=== PATIENT | female | born 1945 | race Caucasian/White ===

== ENCOUNTER 2018-06-08 17:36 | Emergency (ER) | payer MEDICARE, OTHER ==
[2018-06-08] MEDS ORDERED: SODIUM CHLORIDE 0.9% 2,000 ML IV ONE (18:10)
[2018-06-08] MEDS ORDERED: SODIUM CHLORIDE 0.9% 1,000 ML IV ONE (18:25)
--- NOTE | 2018-06-08 18:31 | ED ---
Abdominal Pain HPI - General Chief Complaint: Abdominal Pain Stated Complaint: Left Side Abd Pain Time Seen by Provider: 06/08/18 18:04 Source: patient Mode of arrival: ambulatory Limitations: no limitations - History of Present Illness Initial Comments: Patient is a 72-year-old male presents with chief complaint of left lower quadrant abdominal pain 1 day. The patient cannot identify inciting incident. There are no aggravating or alleviating factors. Timing is been constant. Patient has not had any previous episodes, she denies any history of kidney stones. She denies chest pain, shortness of breath, nausea or vomiting, or diarrhea. - Related Data Previous Rx's Medication Instructions Recorded Ciprofloxacin HCl [Cipro] 500 mg PO Q12HR #14 tablet 06/08/18 Ibuprofen [Motrin] 800 mg PO TID #21 tab 06/08/18 Ondansetron Odt [Zofran Odt] 4 mg PO Q8HR PRN #12 tab 06/08/18 metroNIDAZOLE [Flagyl] 500 mg PO TID #21 tab 06/08/18 Allergies Allergy/AdvReac Type Severity Reaction Status Date / Time amitriptyline [From Elavil] Allergy Unknown Verified 06/08/18 17:53 erythromycin base Allergy Unknown Verified 06/08/18 17:53 Penicillins Allergy Unknown Verified 06/08/18 17:53 phenazopyridine Allergy Unknown Verified 06/08/18 17:53 [From AZO Standard] prochlorperazine Allergy Unknown Verified 06/08/18 17:53 [From Compazine] Sulfa (Sulfonamide Allergy Unknown Verified 06/08/18 17:53 Antibiotics) Review of Systems ROS Statement: Those systems with pertinent positive or pertinent negative responses have been documented in the HPI. ROS Other: All systems not noted in ROS Statement are negative. Gastrointestinal: Reports: abdominal pain Past Medical History Past Medical History: Cancer, Syncope Additional Past Medical History / Comment(s): breast cancer History of Any Multi-Drug Resistant Organisms: None Reported Past Surgical History: Appendectomy, Orthopedic Surgery, Tonsillectomy Additional Past Surgical History / Comment(s): right mastectomy Past Psychological History: No Psychological Hx Reported Smoking Status: Never smoker Past Alcohol Use History: None Reported Past Drug Use History: None Reported General Exam Limitations: no limitations General appearance: alert, in no apparent distress Head exam: Present: atraumatic, normocephalic Eye exam: Present: normal appearance ENT exam: Present: normal exam, mucous membranes moist Neck exam: Present: normal inspection Respiratory exam: Present: normal lung sounds bilaterally. Absent: respiratory distress, wheezes Cardiovascular Exam: Present: regular rate, normal rhythm GI/Abdominal exam: Present: soft. Absent: distended, tenderness Rectal exam: Present: deferred Extremities exam: Present: normal inspection Back exam: Present: normal inspection. Absent: CVA tenderness (R), CVA tenderness (L) Neurological exam: Present: alert, oriented X3 Psychiatric exam: Present: normal affect, normal mood Skin exam: Present: warm, dry, intact Course Vital Signs 06/08/18 06/08/18 17:49 20:41 Temperature 98.7 F Pulse Rate 96 85 Respiratory 20 18 Rate Blood Pressure 162/89 153/72 O2 Sat by Pulse 96 95 Oximetry Medical Decision Making - Medical Decision Making Patient presents with chief complaint of left lower quadrant abdominal pain. On initial evaluation, vitals are stable, patient is no acute distress. Patient is reevaluated patient labs, urinalysis, and computed tomography scan. We'll wait for urine to determine whether without contrast. 10:19 PM Lab evaluation of this patient shows mildly elevated leukocytosis. Labs are otherwise unremarkable. Computed tomography scan of the abdomen and pelvis shows evidence of sigmoid diverticulitis without abscess or rupture. On reevaluation, patient remained stable. She is agreeable to outpatient antibiotics and follow up with primary care. Patient instructed to follow up in 1-2 days, return to the emergency department if symptoms worsen or change. - Lab Data Result diagrams: 06/08/18 19:10 06/08/18 19:10 Lab Results 06/08/18 06/08/18 Range/Units 19:10 19:10 WBC 12.2 H (3.8-10.6) k/uL RBC 4.54 (3.80-5.40) m/uL Hgb 14.6 (11.4-16.0) gm/dL Hct 41.7 (34.0-46.0) % MCV 91.9 (80.0-100.0) fL MCH 32.2 (25.0-35.0) pg MCHC 35.1 (31.0-37.0) g/dL RDW 12.4 (11.5-15.5) % Plt Count 233 (150-450) k/uL Neutrophils % 73 % Lymphocytes % 18 % Monocytes % 6 % Eosinophils % 2 % Basophils % 0 % Neutrophils # 8.9 H (1.3-7.7) k/uL Lymphocytes # 2.2 (1.0-4.8) k/uL Monocytes # 0.7 (0-1.0) k/uL Eosinophils # 0.2 (0-0.7) k/uL Basophils # 0.1 (0-0.2) k/uL Sodium 138 (137-145) mmol/L Potassium 4.5 (3.5-5.1) mmol/L Chloride 101 (98-107) mmol/L Carbon Dioxide 29 (22-30) mmol/L Anion Gap 8 mmol/L BUN 10 (7-17) mg/dL Creatinine 0.58 (0.52-1.04) mg/dL Est GFR (CKD-EPI)AfAm >90 (>60 ml/min/1.73 sqM) Est GFR (CKD-EPI)NonAf >90 (>60 ml/min/1.73 sqM) Glucose 106 H (74-99) mg/dL Calcium 9.7 (8.4-10.2) mg/dL Total Bilirubin 0.9 (0.2-1.3) mg/dL AST 30 (14-36) U/L ALT 44 (9-52) U/L Alkaline Phosphatase 65 (38-126) U/L Total Protein 7.6 (6.3-8.2) g/dL Albumin 4.3 (3.5-5.0) g/dL Disposition Clinical Impression: Diverticulitis Disposition: HOME SELF-CARE Condition: Good Prescriptions: Ciprofloxacin HCl [Cipro] 500 mg PO Q12HR #14 tablet Ibuprofen [Motrin] 800 mg PO TID #21 tab metroNIDAZOLE [Flagyl] 500 mg PO TID #21 tab Ondansetron Odt [Zofran Odt] 4 mg PO Q8HR PRN #12 tab PRN Reason: Nausea Is patient prescribed a controlled substance at d/c from ED?: No Referrals: Nonstaff,Physician [REFERRING] - 1-2 days Viola Dubose MD [STAFF PHYSICIAN] - 1-2 days
[2018-06-08 19:30] LABS: Basophils # (A) 0.1 k/uL (0-0.2); Basophils % (A) 0 %; Eosinophils # (A) 0.2 k/uL (0-0.7); Eosinophils % (A) 2 %; HCT 41.7 % (34.0-46.0); HGB 14.6 gm/dL (11.4-16.0); Lymphocytes # (A) 2.2 k/uL (1.0-4.8); Lymphocytes % (A) 18 %; MCH 32.2 pg (25.0-35.0); MCHC 35.1 g/dL (31.0-37.0); MCV 91.9 fL (80.0-100.0); Mean Platelet Volume 7.9; Monocytes # (A) 0.7 k/uL (0-1.0); Monocytes % (A) 6 %; Neutrophils # (A) 8.9 k/uL (1.3-7.7); Neutrophils % (A) 73 %; Platelet Count 233 k/uL (150-450); RBC 4.54 m/uL (3.80-5.40); RDW 12.4 % (11.5-15.5); WBC 12.2 k/uL (3.8-10.6)
[2018-06-08 20:10] LABS: ALT 44 U/L (9-52); AST 30 U/L (14-36); Albumin 4.3 g/dL (3.5-5.0); Alkaline Phosphatase 65 U/L (38-126); Anion Gap 8 mmol/L; Blood Urea Nitrogen 10 mg/dL (7-17); Calcium 9.7 mg/dL (8.4-10.2); Carbon Dioxide 29 mmol/L (22-30); Chloride 101 mmol/L (98-107); Glucose 106 mg/dL (74-99); Potassium 4.5 mmol/L (3.5-5.1); Sodium 138 mmol/L (137-145); Total Bilirubin 0.9 mg/dL (0.2-1.3); Total Protein 7.6 g/dL (6.3-8.2)
--- NOTE | 2018-06-08 21:40 | CT ---
EXAMINATION TYPE: CT abdomen pelvis wo con DATE OF EXAM: 06/08/2018 COMPARISON: None HISTORY: Left sided abdominal pain. CT DLP: 502.6 mGycm Automated exposure control for dose reduction was used. TECHNIQUE: Helical acquisition of images was performed from the lung bases through the pelvis. FINDINGS: Lack of intravenous contrast and oral contrast limit evaluation of both the hollow and audi d viscera. LUNG BASES: Coronary calcifications are present and partially visualized. Bibasilar pleural-parenchym al scarring is noted. Postsurgical changes the right breast are partially visualized. LIVER/GB: Hepatic parenchyma is diffusely hypoattenuated in comparison to that of the spleen, most co mmonly seen in hepatic steatosis. This finding limits evaluation for hepatic masses. No gross evidenc e of hepatic mass is seen. No intrahepatic biliary ductal dilatation. Probable biliary sludge or very small calculi layered dependently within the gallbladder. PANCREAS: No ductal dilatation seen. SPLEEN: No splenomegaly. ADRENALS: No nodularity or thickening. KIDNEYS: No nephrolithiasis or hydronephrosis. FREE AIR: No free air is visualized ADENOPATHY: No greater than 1 cm short axis lymph nodes within the abdomen or pelvis are seen. REPRODUCTIVE ORGANS: Fluid attenuated left adnexal lesion measures 4.2 cm although there is a punctat e calcification at the periphery and inferior margin. Therefore this could relate to a dermoid or sli ghtly complex cysts. OSSEOUS STRUCTURES: Sacroiliac joint sclerosis is likely degenerative as well as sclerosis of the pu bic symphysis. Mild grade 1 anterolisthesis of L4 on L5 is also likely on a degenerative basis. Multi level mild degenerative changes of the spine are seen. BOWEL: There is pericolonic fat stranding surrounding the descending colon and sigmoid colon with fa scial thickening. This surrounds multiple colonic diverticula. Prominent adjacent left external iliac chain lymph nodes are seen in image 111 measuring up to 5 mm in short axis. These are likely reactiv e to the adjacent inflammatory change. No free air or pericolonic abscess. Surgical clip is noted wit hin the left inguinal region. OTHER: Prior ventral hernia repair has been performed. Small hiatal hernia is seen. IMPRESSION: ACUTE UNCOMPLICATED SIGMOID DIVERTICULITIS WITH NO PERICOLONIC ABSCESS OR FREE AIR.
[2018-06-08] MEDS ORDERED: CIPROFLOXACIN HCL 500 MG TAB PO STA (22:18)
[2018-06-08] MEDS ORDERED: metroNIDAZOLE 500 MG TAB PO STA ×2 (22:18→22:47)
[2018-06-08 22:27] VITALS: BP 137/78; PULSE 91; RESP 17; TEMP 98.6
[2018-06-08] MEDS ORDERED: LEVOFLOXACIN 750 MG TAB PO STA (22:52)
[2018-06-08] MEDS ORDERED: metroNIDAZOLE 250 MG TABLET PO ONE (23:00)
== END 2018-06-08 22:59 | disposition home or self-care (01) ==
LOC: EC 17:36
DX: K57.32 Diverticulitis of large intestine without perforation or abscess without bleeding (principal); D72.829 Elevated white blood cell count, unspecified; Z85.3 Personal history of malignant neoplasm of breast; Z90.49 Acquired absence of other specified parts of digestive tract; Z88.8 Allergy status to other drugs, medicaments and biological substances; Z88.1 Allergy status to other antibiotic agents; Z88.0 Allergy status to penicillin; Z88.2 Allergy status to sulfonamides
CPT/HCPCS: 36415; 74176; 80053; 85025; 96360; 99284

== ENCOUNTER 2020-02-27 20:06 | Emergency (ER) | payer MEDICARE, OTHER ==
[2020-02-27 20:14] VITALS: BP 149/77; PULSE 87; RESP 16; TEMP 97.9
--- NOTE | 2020-02-27 20:37 | ED ---
Fall HPI - General Chief Complaint: Fall Stated Complaint: Fall, facial injury Time Seen by Provider: 02/27/20 20:24 Source: patient Mode of arrival: ambulatory - History of Present Illness Initial Comments: Patient is a 74-year-old female presenting to the emergency department after a fall injury. Patient states her neighbor's dog jumped on her and knocked her to the ground. Patient states she hit her head on cement, face first. She did not lose consciousness. She is not on blood thinners. She is complaining of nasal bone pain as well as right knee and left wrist pain. Patient denies any previous surgeries or injuries to these locations. She states she also chipped a tooth. She denies any chest pain or shortness of breath. She denies any abdominal pain or any other injuries from this fall. She has no further complaints. Upon arrival to the ER her vitals are stable. - Related Data Previous Rx's Medication Instructions Recorded Ciprofloxacin HCl [Cipro] 500 mg PO Q12HR #14 tablet 06/08/18 Ibuprofen [Motrin] 800 mg PO TID #21 tab 06/08/18 Levofloxacin [Levaquin] 750 mg PO DAILY #7 tab 06/08/18 Ondansetron Odt [Zofran Odt] 4 mg PO Q8HR PRN #12 tab 06/08/18 metroNIDAZOLE [Flagyl] 500 mg PO TID #21 tab 06/08/18 Allergies Allergy/AdvReac Type Severity Reaction Status Date / Time amitriptyline [From Elavil] Allergy Unknown Verified 06/08/18 17:53 egg Allergy Diarrhea Verified 02/27/20 20:14 erythromycin base Allergy Unknown Verified 06/08/18 17:53 Penicillins Allergy Unknown Verified 06/08/18 17:53 phenazopyridine Allergy Unknown Verified 06/08/18 17:53 [From AZO Standard] prochlorperazine Allergy Unknown Verified 06/08/18 17:53 [From Compazine] Sulfa (Sulfonamide Allergy Unknown Verified 06/08/18 17:53 Antibiotics) Review of Systems ROS Statement: Those systems with pertinent positive or pertinent negative responses have been documented in the HPI. ROS Other: All systems not noted in ROS Statement are negative. Past Medical History Past Medical History: Cancer, Syncope Additional Past Medical History / Comment(s): breast cancer History of Any Multi-Drug Resistant Organisms: None Reported Past Surgical History: Appendectomy, Orthopedic Surgery, Tonsillectomy Additional Past Surgical History / Comment(s): right mastectomy Past Psychological History: No Psychological Hx Reported Smoking Status: Never smoker Past Alcohol Use History: None Reported Past Drug Use History: None Reported General Exam - General Exam Comments Initial Comments: GENERAL: Well-appearing, well-nourished and in no acute distress. HEAD: Atraumatic, normocephalic. No signs of basal skull fracture. EYES: Pupils equal round and reactive to light, extraocular movements intact, sclera anicteric, conjunctiva are normal. ENT: TMs normal, nares patent, oropharynx clear without exudates. Moist mucous membranes. Patient has pain with palpation of the nasal bridge, there is some edema as well as some abrasions to the nasal bone as well. There seems to be a slight curvature as well which patient states is not normal for her. There is no septal hematoma. Patient also has 2 chipped front teeth and a very small laceration to her top lip. There is no active bleeding, this does not require sutures. NECK: Normal range of motion, supple without lymphadenopathy or JVD. No midline tenderness. LUNGS: Breath sounds clear to auscultation bilaterally and equal. No wheezes rales or rhonchi. HEART: Regular rate and rhythm without murmurs, rubs or gallops. ABDOMEN: Soft, nontender, normoactive bowel sounds. No guarding, no rebound. No masses appreciated. : Deferred EXTREMITIES: Patient has pain with palpation of her left wrist. She does have full range of motion but pain with every motion. There is no obvious deformity or swelling to the area. She is neurovascular intact. Patient also has pain with palpation of the right anterior knee. She has a mild abrasion to the area. She does have some very mild swelling to the anterior knee. She does have full range of motion, she is neurovascular intact. NEUROLOGICAL: Cranial nerves II through XII grossly intact. Normal speech, normal gait. PSYCH: Normal mood, normal affect. SKIN: Warm, Dry, normal turgor, no rashes or lesions noted. Limitations: no limitations Course Vital Signs 02/27/20 20:11 Temperature 97.9 F Pulse Rate 87 Respiratory 16 Rate Blood Pressure 149/77 O2 Sat by Pulse 97 Oximetry Medical Decision Making - Medical Decision Making Patient is a 74-year-old female here after a fall on cement. She did not lose consciousness, no blood thinners. She is complaining of nasal bone pain, right knee, left wrist pain. CT of her head and facial bones show no acute abnormalities, no acute fracture of the nasal bone. X-rays of the knee and wrist also showed no acute fractures or deformities. I discussed this with the patient. I did offer the patient a Tylenol and ibuprofen however she refused. I recommended taking ibuprofen or Tylenol at home as well as icing the areas that are sore. She needs to follow up with a dentist regarding her chipped 2 front teeth. Patient is in agreement with this plan of care. She is stable for discharge. Return parameters were discussed with the patient and she verbalized understanding. Case discussed with Dr. Canada. Disposition Clinical Impression: Fall, Contusion of right knee, Left wrist pain, Contusion of nose, Chipped tooth Disposition: HOME SELF-CARE Condition: Stable Instructions (If sedation given, give patient instructions): Contusion in Adults (ED) Additional Instructions: Please return to the Emergency Department if symptoms worsen or any other concerns. Recommend taking Tylenol and/or Motrin for discomfort. Ice to areas as well. Follow-up with dentist regarding chipped front teeth. Is patient prescribed a controlled substance at d/c from ED?: No Referrals: Ozzie Clifford Jr, [Primary Care Provider] - 1-2 days
--- NOTE | 2020-02-27 21:34 | CT ---
EXAMINATION TYPE: CT facial bones wo con DATE OF EXAM: 02/27/2020 COMPARISON: None HISTORY: Fall, facial injuries. CT DLP: mGycm Automated exposure control for dose reduction was used. The mandibular ring is intact. Zygomatic arches appear normal. Maxilla is intact. There is no evidenc e of a blowout fracture. Nasal bone is intact. Orbital margins are intact. There is no evidence of re tro-orbital mass. There is fairly normal aeration of the paranasal sinuses. Temporomandibular joints appear normal. There is normal aeration of the temporal bones. IMPRESSION: No fracture. Negative exam.
--- NOTE | 2020-02-27 21:36 | CT ---
EXAMINATION TYPE: CT brain wo con DATE OF EXAM: 02/27/2020 COMPARISON: None HISTORY: Fall, facial injuries. CT DLP: 1246.4 mGycm Automated exposure control for dose reduction was used. There is mild cerebral atrophy. There is no mass effect nor midline shift. There is no sign of intrac ranial hemorrhage. Calvarium is intact. Skull base is intact. IMPRESSION: Mild atrophy. No acute intracranial abnormality.
--- NOTE | 2020-02-27 21:41 | XR ---
EXAMINATION TYPE: XR knee complete RT DATE OF EXAM: 02/27/2020 COMPARISON: NONE HISTORY: Fall. Knee pain TECHNIQUE: 3 views FINDINGS: I see no fracture nor dislocation. Joint spaces are normal. There is no sign of joint effus ion. IMPRESSION: Negative right knee exam.
--- NOTE | 2020-02-27 21:42 | XR ---
EXAMINATION TYPE: XR wrist complete LT DATE OF EXAM: 02/27/2020 COMPARISON: NONE HISTORY: Pain TECHNIQUE: 4 views FINDINGS: There is narrowing of the first carpometacarpal joint. I see no fracture nor dislocation. M etacarpals appear intact. IMPRESSION: Moderate osteoarthritis at the first carpometacarpal joint. No fracture seen.
== END 2020-02-27 22:11 | disposition home or self-care (01) ==
LOC: EC 20:06
DX: S00.33XA Contusion of nose, initial encounter (principal); S80.01XA Contusion of right knee, initial encounter; S02.5XXA Fracture of tooth (traumatic), initial encounter for closed fracture; M25.532 Pain in left wrist; Z88.8 Allergy status to other drugs, medicaments and biological substances; Z91.012 Allergy to eggs; Z88.0 Allergy status to penicillin; Z88.1 Allergy status to other antibiotic agents; Z88.2 Allergy status to sulfonamides; Z85.3 Personal history of malignant neoplasm of breast; Z90.11 Acquired absence of right breast and nipple; W54.1XXA Struck by dog, initial encounter
CPT/HCPCS: 70450; 70486; 99284

== ENCOUNTER 2020-03-12 20:19 | Emergency (ER) | payer MEDICARE, OTHER ==
[2020-03-12 20:51] VITALS: RESP 16
--- NOTE | 2020-03-12 21:55 | XR ---
Cervical spine HISTORY: Trauma and pain 5 views of the cervical spine No comparisons Cervical vertebral bodies show preserved height. Bone mineralization is reduced. There is spondylosis greatest at C5-6 with associated loss of disc height. Anterolisthesis grade 1 C3-4, retrolisthesis g rade 1 C5-6. There is facet arthropathy change present. Lung apices are unremarkable. There is forami nal encroachment present at C4-5 and C5-6 bilaterally, the right at C3-4. IMPRESSION: Degenerative disc disease and facet arthropathy. No acute fracture or subluxation.
--- NOTE | 2020-03-12 21:57 | XR ---
Lumbar spine, sacrum and coccyx HISTORY: Trauma and pain 3 views of the sacrum and coccyx, 3 views the lumbar spine Surgical clips are present right upper quadrant. Bone mineralization is reduced. Anterolisthesis grad e 1 at L4-5. Lumbar vertebral bodies show preserved height. Loss of disc height present L5-S1, L4-5. Sclerosis present in the posterior elements of the lower lumbar spine. Sacrum and coccyx show decreas ed bone mineralization. Alignment maintained. IMPRESSION: Degenerative disc disease, facet arthropathy. No acute fracture or dislocation is evident . Low bone mineralization may limit sensitivity.
--- NOTE | 2020-03-12 22:40 | ED ---
General Adult HPI - General Chief complaint: Back Pain/Injury Stated complaint: Fall, lower back/tailbone pain Time Seen by Provider: 03/12/20 20:53 Source: patient, RN notes reviewed, old records reviewed Mode of arrival: ambulatory Limitations: no limitations - History of Present Illness Initial comments: 74-year-old female patient receive a chief complaint of fall and sacral pain. Patient reports that yesterday she was walking approximately 8 PM. She went to step over a wire. She lost her balance, she fell backwards. Patient reports that she landed on her sacral region. She reports that she then fell back she did hit her head on a soft mulch bag. She says that she is having a very mild amount of pain in her neck. Denies a loss of consciousness. Denies any headache. Denies any use of blood thinners. Denies any other complaints. Denies any red flag symptoms. Systemic: Pt denies fatigue, fever/chills, rash. Pt denies weakness, night s weats, weight loss. Neuro: Pt denies headache, visual disturbances, syncope or pre-syncope. HEENT: Pt denies ocular discharge or irritation, otalgia, rhinorrhea, pharyngitis or notable lymphadenopathy. Cardiopulmonary: Pt denies chest pain, SOB, heart palpitations, dyspnea on exertion. Abdominal/GI: Pt denies abdominal pain, n/v/d. : Pt denies dysuria, burning w/ urination, frequency/urgency. Denies new onset urinary or bowel incontinence. MSK: Pt denies myalgia, loss of strength or function in extremities. Neuro: Pt denies new onset weakness, paresthesias. - Related Data Home Medications Medication Instructions Recorded Confirmed Thyroid,Pork [Nature-Throid] 130 mg PO DAILY 03/12/20 03/12/20 Allergies Allergy/AdvReac Type Severity Reaction Status Date / Time amitriptyline [From Elavil] Allergy Unknown Verified 03/12/20 22:29 cephradine [From Velosef] Allergy Rash/Hives Verified 03/12/20 22:29 egg Allergy Diarrhea Verified 03/12/20 22:29 erythromycin base Allergy Unknown Verified 03/12/20 22:29 Penicillins Allergy Unknown Verified 03/12/20 22:29 phenazopyridine Allergy Unknown Verified 03/12/20 22:29 [From AZO Standard] prochlorperazine Allergy Unknown Verified 03/12/20 22:29 [From Compazine] Sulfa (Sulfonamide Allergy Unknown Verified 03/12/20 22:29 Antibiotics) sulfamethoxazole Allergy Rash/Hives Verified 03/12/20 22:29 [From Bactrim] trimethoprim [From Bactrim] Allergy Rash/Hives Verified 03/12/20 22:29 Review of Systems ROS Statement: Those systems with pertinent positive or pertinent negative responses have been documented in the HPI. ROS Other: All systems not noted in ROS Statement are negative. Past Medical History Past Medical History: Cancer, Syncope Additional Past Medical History / Comment(s): breast cancer History of Any Multi-Drug Resistant Organisms: None Reported Past Surgical History: Appendectomy, Orthopedic Surgery, Tonsillectomy Additional Past Surgical History / Comment(s): right mastectomy Past Psychological History: No Psychological Hx Reported Smoking Status: Never smoker Past Alcohol Use History: None Reported Past Drug Use History: None Reported General Exam - General Exam Comments Initial Comments: Constitutional: NAD, AOX3, Pt has pleasant affect. HEENT: NC/AT, trachea midline, neck supple, no lymphadenopathy. Posterior pharynx non erythematous, without exudates. External ears appear normal, without discharge. Mucous membranes moist. Eyes PERRLA, EOM intact. There is no scleral icterus. No pallor noted. Cardiopulmonary: RRR, no murmurs, rubs or gallops, no JVD noted. Lungs CTAB in anterior and posterior szymanski. No peripheral edema. Abdominal exam: Abdomen soft and non-distended. Abdomen non-tender to palpation in all 4 quadrants. Bowel sounds active in LLQ. No hepatosplenomegaly. No ecchymosis Neuro: CN II-XII intact. No nuchal rigidity. No raccon eyes, no matos sign, no hemotympanum. No midline cervical spinal tenderness. MSK: Sacral region is moderately tender to palpation. No skin changes. 5 out of 5 strength psoas quadriceps muscles. Sensation intact. Ambualatory without difficulty. Sensation intact in upper and lower extremities. Full active ROM in upper and lower extremities, 5/5 stregnth. Limitations: no limitations Course Vital Signs 03/12/20 20:47 Temperature 98 F Pulse Rate 94 Respiratory 16 Rate Blood Pressure 150/80 O2 Sat by Pulse 96 Oximetry Medical Decision Making - Medical Decision Making 74-year-old [facility] for evaluation of sacral p ain after a fall which occurred yesterday. Patient does report that she did hit her head on a mulch bag. Patient is declining a CAT scan at this time. The plan of not ruling out any sort of intracranial abnormality and that it is a much better imaging modality for the neck and x-ray. She verbalized understanding. States that she has a very mild amount of neck discomfort. She reports that she has some chronic neck pain in this region and that there is no significant difference. Cervical spine plain film despite degenerative disc disease and facet arthropathy. No acute fracture or subluxation. Plain film of lumbar spine sacrum and coccyx displayed degenerative disc disease faster arthropathy no acute fracture dislocations evident. She is declining any weakness or anesthesia loss of bowel or bladder control. Patient discharged will follow up with primary care provider and will be given orthopedic referral. Return to ER if condition worsens. Case discussed with Dr. Hernández. Disposition Clinical Impression: Fall, Coccyx pain Disposition: HOME SELF-CARE Condition: Stable Instructions (If sedation given, give patient instructions): Acute Low Back Pain (ED) Additional Instructions: Follow-up with primary care provider tomorrow. I will Also provide you an orthopedic consult due to degenerative disc disease. Return to ER if condition worsens. Is patient prescribed a controlled substance at d/c from ED?: No Referrals: Ozzie Clifford Jr, DO [Primary Care Provider] - 1-2 days Srinivas Menard, [Doctor of Osteopathic Medicine] - 1-2 days
[2020-03-12 22:50] VITALS: BP 137/91; PULSE 74; TEMP 97.4
== END 2020-03-12 22:50 | disposition home or self-care (01) ==
LOC: EC 20:19
DX: M53.3 Sacrococcygeal disorders, not elsewhere classified (principal); M50.322 Other cervical disc degeneration at C5-C6 level; M46.92 Unspecified inflammatory spondylopathy, cervical region; Z79.890 Hormone replacement therapy; Z88.0 Allergy status to penicillin; Z88.1 Allergy status to other antibiotic agents; Z88.2 Allergy status to sulfonamides; Z88.8 Allergy status to other drugs, medicaments and biological substances; Z91.012 Allergy to eggs; Z85.3 Personal history of malignant neoplasm of breast; Z90.11 Acquired absence of right breast and nipple
CPT/HCPCS: 72050; 72100; 72220; 99284

== ENCOUNTER → 2021-01-18 | Outpatient (CLI) | payer MEDICARE, OTHER | END | disposition home or self-care (01) | LOC: LABWHC1 15:09 | PROVIDERS: ATTEND Internal Medicine Endocrinology, Diabetes & Metabolism | DX: E03.8 Other specified hypothyroidism (principal) | CPT/HCPCS: 36415; 84443 ==

== ENCOUNTER → 2021-03-10 | Outpatient (CLI) | payer MEDICARE, OTHER ==
[2021-03-10 22:44] LABS: Basophils # (A) 0.06 X 10*3/uL (0.00-0.10); Basophils % (A) 0.9 %; Eosinophils # (A) 0.21 X 10*3/uL (0.04-0.35); Eosinophils % (A) 3.2 %; HCT 42.1 % (37.2-46.3); HGB 14.1 g/dL (12.0-15.0); Lymphocytes # (A) 2.47 X 10*3/uL (0.90-5.00); Lymphocytes % (A) 37.3 %; MCH 32.3 pg (27.0-32.0); MCHC 33.5 g/dL (32.0-37.0); MCV 96.3 fL (80.0-97.0); Mean Platelet Volume 11.3 fL (9.5-12.2); Monocytes # (A) 0.61 X 10*3/uL (0.20-1.00); Monocytes % (A) 9.2 %; Neutrophils # (A) 3.26 X 10*3/uL (1.80-7.70); Neutrophils % (A) 49.1 %; Platelet Count 225 X 10*3/uL (140-440); RBC 4.37 X 10*6/uL (4.10-5.20); RDW 11.9 % (11.5-14.5); WBC 6.63 X 10*3/uL (4.50-10.00)
[2021-03-11 02:40] LABS: African American GFR (CKD) 99.6 (60.0-200.0); Albumin 4.4 g/dL (3.80-4.90); Albumin/Globulin Ratio 1.76 (1.60-3.17); Anion Gap 8.6 mmol/L (4.00-12.00); BUN/Creat Ratio 21.43 Ratio (12.00-20.00); Calcium 9.1 mg/dL (8.7-10.3); Carbon Dioxide 25.4 mmol/L (21.6-31.8); Chol/HDL Ratio 4.07; Globulin 2.5 g/dL (1.6-3.3); LDL Cholesterol,Calculated 101.6 mg/dL (0.0-131.0); Potassium 4.3 mmol/L (3.5-5.5); Total Bilirubin 0.6 mg/dL (0.2-1.2); Total Protein 6.9 g/dL (6.2-8.2); VLDL Calculation 27.4 mg/dL (5.00-40.00)
[2021-03-11 02:48] LABS: T4, Free (Free Thyroxine) 1.4 ng/dL (0.80-1.80)
== END | disposition home or self-care (01) ==
LOC: LABWHC1 14:37
PROVIDERS: ATTEND Nurse Practitioner Family
DX: Z00.00 Encounter for general adult medical examination without abnormal findings (principal); E03.9 Hypothyroidism, unspecified; Z79.899 Other long term (current) drug therapy
CPT/HCPCS: 36415; 80053; 80061; 84439; 84443; 85025

== ENCOUNTER → 2021-04-13 | Outpatient (CLI) | payer MEDICARE, OTHER ==
[2021-04-14 17:09] LABS: T4, Free (Free Thyroxine) 1.1 ng/dL (0.80-1.80)
== END | disposition home or self-care (01) ==
LOC: LABWHC1 15:17
PROVIDERS: ATTEND Nurse Practitioner Family
DX: E03.9 Hypothyroidism, unspecified (principal); Z79.899 Other long term (current) drug therapy
CPT/HCPCS: 36415; 84439; 84443

== ENCOUNTER → 2021-08-24 | Outpatient (CLI) | payer MEDICARE, OTHER ==
[2021-08-25 00:26] LABS: T4, Free (Free Thyroxine) 1.09 ng/dL (0.800-1.800)
== END | disposition home or self-care (01) ==
LOC: LABWHC1 15:57
PROVIDERS: ATTEND Family Medicine
DX: E03.9 Hypothyroidism, unspecified (principal); R53.83 Other fatigue; L65.9 Nonscarring hair loss, unspecified
CPT/HCPCS: 36415; 82784; 84439; 84443; 86308; 86644; 86663

== ENCOUNTER → 2022-11-30 | Outpatient (CLI) | payer MEDICARE, OTHER ==
[2022-12-01 01:57] LABS: DHEA Sulfate 50.3 ug/dL (26.0-430.0)
== END | disposition home or self-care (01) ==
LOC: LABWHC1 14:40
PROVIDERS: ATTEND Family Medicine
DX: M25.50 Pain in unspecified joint (principal); R14.0 Abdominal distension (gaseous)
CPT/HCPCS: 36415; 82306; 82533; 82627; 82784; 86001; 86038; 86431

== ENCOUNTER → 2024-06-04 | Outpatient (CLI) | payer MEDICARE, OTHER ==
--- NOTE | 2024-06-04 17:38 | MR ---
EXAMINATION TYPE: MR lumbar spine wo con DATE OF EXAM: 06/04/2024 4:30 PM CLINICAL INDICATION: Female, 78 years old with history of S32.010A WEDGE COMPRESSION S32.040A; PHH, L ower back pain, BLE radiculopathy, wedge compression. COMPARISON: 03/12/2020 TECHNIQUE: Multi planar, multi sequence imaging was performed utilizing: T1-weighted, T2-weighted, a nd turbo inversion recovery imaging of the lumbar spine. IV Contrast: cc . (None if empty) FINDINGS: Alignment: The lumbar vertebral bodies have preserved heights and alignment. Cord: The conus medullaris and the distal spinal cord appear unremarkable with regards to their signa l intensity and morphology. Bones/Discs: Bony edema within the inferior endplate of L4 and superior endplate of L5 Schmorl's node present in the superior endplate of L5. Chronic appearing endplate deformity of L1 superior endplate . T12-L1: No evidence of significant spinal canal stenosis or neural foraminal stenosis. L1-L2: No evidence of significant spinal canal stenosis or neural foraminal stenosis. L2-L3: No evidence of significant spinal canal stenosis or neural foraminal stenosis. L3-L4: No evidence of significant spinal canal stenosis or neural foraminal stenosis. L4-L5: Disc uncovering from grade 1 anterolisthesis and facet joint arthropathy with mild spinal hayden l stenosis and mild bilateral neural foraminal stenosis. L5-S1: The disc has a rounded posterior morphology without significant spinal canal stenosis. Facet j oint arthropathy with mild bilateral neural foraminal stenosis. No significant spinal canal or neural foraminal stenosis in the remainder of the visualized levels. Other findings: None. IMPRESSION: 1. Bony edema surrounding a Schmorl's node at superior endplate of L5 correlate for acute Schmorl's node. 2. No definitive evidence of disc herniation or significant spinal canal stenosis. 3. Mild disc degeneration with associated osteoarthritic changes. [facility], , 06/04/2024 5:36 PM
== END | disposition home or self-care (01) ==
LOC: RADMRIMAIN 15:22
PROVIDERS: ATTEND Family Medicine
DX: S32.010A Wedge compression fracture of first lumbar vertebra, initial encounter for closed fracture (principal); S32.040A Wedge compression fracture of fourth lumbar vertebra, initial encounter for closed fracture; M51.16 Intervertebral disc disorders with radiculopathy, lumbar region
CPT/HCPCS: 72148